=== PATIENT | female | born 1960 | race Hispanic/Latino ===

== ENCOUNTER 2018-05-29 17:50 | Emergency (ER) | payer MEDICAID, MEDICARE, OTHER ==
[2018-05-29] MEDS ORDERED: ACETAMINOPHEN EXTRA STRENGTH 500 MG TABLET ONE (18:06)
[2018-05-29] MEDS ORDERED: SODIUM CHLORIDE 0.9% 1000ML 1,000 ML IV ONE (18:06)
[2018-05-29] MEDS ORDERED: ONDANSETRON HCL 4 MG/2 ML VIAL ONE (18:06)
[2018-05-29] MEDS ORDERED: MORPHINE SULFATE 4 MG/1ML SYG ONE (18:07)
[2018-05-29 18:08] LABS: APPEARANCE,URINE Cloudy (CLEAR); BILIRUBIN,URINE Negative (NEGATIVE); COLOR,URINE Yellow (YELLOW); GLUCOSE, URINE (UA) Negative (NEGATIVE); KETONES,URINE Negative (NEGATIVE); LEUKOCYTE ESTERASE ,URINE Small (NEGATIVE); NITRATE,URINE Negative (NEGATIVE); OCCULT BLOOD,URINE Moderate (NEGATIVE); PH,URINE 5.5 (5.0-8.0); PROTEIN,URINE Trace (NEGATIVE); UROBILINOGEN,URINE 0.2 mg/dL (0.2-1.0)
[2018-05-29 18:19] LABS: BASOPHILS % (AUTO) 0.5 % (0.0-5.0); EOSINOPHILS % (AUTO) 0.6 % (0.0-8.0); HEMATOCRIT 41.7 % (36-48); LYMPHOCYTES % (AUTO) 24.1 % (21.0-51.0); MEAN CORPUSCULAR HEMOGLOBIN 28.3 pg (27.0-33.0); MEAN CORPUSCULAR HGB CONC 33.1 g/dL (32.0-36.0); MEAN CORPUSCULAR VOLUME 85.6 fL (79-99); MONOCYTES % (AUTO) 7.3 % (3.0-13.0); NEUTROPHILS % (AUTO) 67.5 % (40.0-77.0); PLATELET COUNT (AUTO) 252 K/uL (130-400); RED BLOOD CELL COUNT(AUTO) 4.87 MIL/uL (4.00-5.50); RED CELL DISTRIBUTION WIDTH 14.2 % (11.0-15.5); WHITE BLOOD COUNT (AUTO) 10.5 K/uL (4.8-10.8)
[2018-05-29 18:32] LABS: CREATININE 0.5 mg/dL (0.5-1.5); POTASSIUM 3.1 mmol/L (3.5-5.1)
[2018-05-29 18:34] LABS: ALBUMIN 3.7 g/dL (3.5-5.0); BILIRUBIN,TOTAL 0.7 mg/dL (0.2-1.0); TOTAL PROTEIN, SERUM 7.7 g/dL (6.0-8.3)
[2018-05-29 18:36] LABS: FINE GRANULAR CASTS,URINE 0-2 /LPF (None Seen)
[2018-05-29 18:37] LABS: MUCUS,URINE Moderate LPF (None Seen); OTHER CASTS, URINE WBC CASTS 1+ /LPF (None Seen)
[2018-05-29 18:41] LABS: BACTERIA,URINE Few /HPF (None Seen)
[2018-05-29] MEDS ORDERED: SODIUM CHLORIDE 0.9% 50 ML IV ONE (19:46)
[2018-05-29] MEDS ORDERED: CEFTRIAXONE SODIUM 1 GM ONE (19:46)
[2018-05-29] MEDS ORDERED: POTASSIUM BICARB/CIT AC 25 MEQ TABLET.EFF ONE (19:46)
== END 2018-05-29 20:26 | disposition home or self-care (01) ==
LOC: EDH 17:50
DX: N20.1 Calculus of ureter (principal); N39.0 Urinary tract infection, site not specified; Z90.710 Acquired absence of both cervix and uterus; Z90.49 Acquired absence of other specified parts of digestive tract
CPT/HCPCS: 36415; 74176; 80053; 81001; 83690; 85025; 93005; 96374; 96375 ×2; 99284; J0696; J2270; J2405; J7030

== ENCOUNTER → 2018-08-14 | Outpatient (CLI) | payer OTHER | END | disposition home or self-care (01) | LOC: RAH 07-26 09:42 | PROVIDERS: ATTEND Internal Medicine | DX: R92.8 Other abnormal and inconclusive findings on diagnostic imaging of breast (principal) | CPT/HCPCS: 77066 ==

== ENCOUNTER → 2018-09-11 | Outpatient (CLI) | payer OTHER | END | disposition home or self-care (01) | LOC: RAH 07:26 | PROVIDERS: ATTEND Internal Medicine | DX: N60.01 Solitary cyst of right breast (principal); N60.02 Solitary cyst of left breast | CPT/HCPCS: 76641 ==

== ENCOUNTER → 2018-09-12 | Outpatient (CLI) | payer OTHER | END | disposition home or self-care (01) | LOC: RAH 08-21 08:33 | PROVIDERS: ATTEND Internal Medicine | DX: R94.6 Abnormal results of thyroid function studies (principal); R79.89 Other specified abnormal findings of blood chemistry | CPT/HCPCS: 78014; A9516 ==

== ENCOUNTER → 2018-12-05 | Outpatient (CLI) | payer OTHER | END | disposition home or self-care (01) | LOC: RAH 10:18 | PROVIDERS: ATTEND Internal Medicine Endocrinology, Diabetes & Metabolism | DX: E05.00 Thyrotoxicosis with diffuse goiter without thyrotoxic crisis or storm (principal); R68.89 Other general symptoms and signs | CPT/HCPCS: 76536 ==

== ENCOUNTER 2020-05-12 21:18 | Emergency (ER) | payer OTHER ==
[2020-05-12] MEDS ORDERED: ACETAMINOPHEN 325 MG TAB ONE (21:47)
== END 2020-05-12 22:59 | disposition home or self-care (01) ==
LOC: EDH 21:18
DX: M25.512 Pain in left shoulder (principal); M25.552 Pain in left hip; I10 Essential (primary) hypertension; E78.00 Pure hypercholesterolemia, unspecified; Z90.710 Acquired absence of both cervix and uterus; Z90.49 Acquired absence of other specified parts of digestive tract; W18.39XA Other fall on same level, initial encounter; Y93.89 Activity, other specified; Y92.89 Other specified places as the place of occurrence of the external cause; Y99.8 Other external cause status
CPT/HCPCS: 71045; 73060; 73552

== ENCOUNTER 2020-05-17 12:14 | Emergency (ER) | payer OTHER ==
[2020-05-17 12:42] LABS: APPEARANCE,URINE Cloudy (CLEAR); BILIRUBIN,URINE Negative (NEGATIVE); COLOR,URINE Yellow (YELLOW); GLUCOSE, URINE (UA) Negative (NEGATIVE); KETONES,URINE Trace mg/dL (NEGATIVE); LEUKOCYTE ESTERASE ,URINE Trace (NEGATIVE); NITRATE,URINE Negative (NEGATIVE); OCCULT BLOOD,URINE Large (NEGATIVE); PH,URINE 5.5 (5.0-8.0); PROTEIN,URINE Trace mg/dL (NEGATIVE)
[2020-05-17] MEDS ORDERED: 0.9%NACL 1000ML 1,000 ML IV ONE (12:42)
[2020-05-17] MEDS ORDERED: 0.9%NACL 100ML 100 ML IV ONE (12:44)
[2020-05-17] MEDS ORDERED: KETOROLAC 30MG VIAL (30MG/ML) ONE (12:45)
[2020-05-17 12:51] LABS: BASOPHILS % (AUTO) 0.4 % (0.0-5.0); EOSINOPHILS % (AUTO) 0.6 % (0.0-8.0); HEMATOCRIT 40.8 % (36-48); MEAN CORPUSCULAR HEMOGLOBIN 30.5 pg (27.0-33.0); MEAN CORPUSCULAR HGB CONC 33.1 g/dL (32.0-36.0); MEAN CORPUSCULAR VOLUME 92.3 fL (79-99); MONOCYTES % (AUTO) 6.8 % (3.0-13.0); NEUTROPHILS % (AUTO) 78.9 % (40.0-77.0); PLATELET COUNT (AUTO) 274 K/uL (130-400); RED BLOOD CELL COUNT(AUTO) 4.42 MIL/uL (4.00-5.50); WHITE BLOOD COUNT (AUTO) 11.8 K/uL (4.8-10.8)
[2020-05-17 12:54] LABS: BACTERIA,URINE Few /HPF (None Seen); MUCUS,URINE Moderate LPF (None Seen); RBC,URINE 26-50 /HPF (0-1)
[2020-05-17 13:03] LABS: CREATININE 0.9 mg/dL (0.5-1.5); POTASSIUM 3.8 mmol/L (3.5-5.1)
[2020-05-17 13:08] LABS: ALBUMIN 3.6 g/dL (3.5-5.0); BILIRUBIN,TOTAL 0.6 mg/dL (0.2-1.0); TOTAL PROTEIN, SERUM 7.1 g/dL (6.0-8.3)
[2020-05-17] MEDS ORDERED: TAMSULOSIN HCL 0.4 MG CAP.ER.24H ONE (14:20)
== END 2020-05-17 16:02 | disposition home or self-care (01) ==
LOC: EDH 12:14
DX: N20.0 Calculus of kidney (principal); E78.00 Pure hypercholesterolemia, unspecified; I10 Essential (primary) hypertension; Z90.49 Acquired absence of other specified parts of digestive tract; Z90.710 Acquired absence of both cervix and uterus
CPT/HCPCS: 36415; 74176; 80053; 81001; 85025; 96365; 96375; 99284; J1885; J7030

== ENCOUNTER → 2020-06-01 | Outpatient (CLI) | payer OTHER | END | disposition home or self-care (01) | LOC: RAH 09:02 | PROVIDERS: ATTEND Internal Medicine | DX: N60.01 Solitary cyst of right breast (principal); N60.02 Solitary cyst of left breast; N60.11 Diffuse cystic mastopathy of right breast | CPT/HCPCS: 77066 ==

== ENCOUNTER 2021-04-24 10:33 | Emergency (ER) | payer OTHER ==
[~2021-04-24] VITALS: Ht 147.3 cm; Wt 83.9 kg
[2021-04-24] MEDS ORDERED: KETOROLAC 30MG VIAL (30MG/ML) IV ONE (11:00)
[2021-04-24] MEDS ORDERED: KETOROLAC 30MG VIAL (30MG/ML) ONE (11:06)
[2021-04-24 11:40] VITALS: BP 156/92
[2021-04-24] MEDS ORDERED: ACET1TAB25 PO (12:09)
[2021-04-24] MEDS ORDERED: WALK1EAC55 MC (12:10)
== END 2021-04-24 12:41 | disposition home or self-care (01) ==
LOC: EDH 10:33
DX: S70.01XA Contusion of right hip, initial encounter (principal); S30.0XXA Contusion of lower back and pelvis, initial encounter; E03.9 Hypothyroidism, unspecified; E78.00 Pure hypercholesterolemia, unspecified; I10 Essential (primary) hypertension; K21.9 Gastro-esophageal reflux disease without esophagitis; Z79.1 Long term (current) use of non-steroidal anti-inflammatories (NSAID); Z90.49 Acquired absence of other specified parts of digestive tract; W18.39XA Other fall on same level, initial encounter; Y93.89 Activity, other specified; Y92.89 Other specified places as the place of occurrence of the external cause; Y99.8 Other external cause status
CPT/HCPCS: 73502; 73552; 96374; 99284; J1885

== ENCOUNTER 2021-08-02 14:36 | Observation (INO) | payer OTHER ==
[~2021-08-02] VITALS: Ht 147.3 cm; Wt 83.0 kg
[~2021-08-02 14:36] MED LIST: ACET-2079 PO; WALK1EAC55 MC
[2021-08-02 15:06] LABS: APPEARANCE,URINE Clear (CLEAR); BILIRUBIN,URINE Negative (NEGATIVE); COLOR,URINE Yellow (YELLOW); GLUCOSE, URINE (UA) Negative (NEGATIVE); KETONES,URINE Negative (NEGATIVE); LEUKOCYTE ESTERASE ,URINE Negative (NEGATIVE); NITRATE,URINE Negative (NEGATIVE); OCCULT BLOOD,URINE Negative (NEGATIVE); PROTEIN,URINE Negative (NEGATIVE); UROBILINOGEN,URINE 0.2 mg/dL (0.2-1.0)
[2021-08-02 15:07] LABS: BASOPHILS % (AUTO) 0.6 % (0.0-5.0); EOSINOPHILS % (AUTO) 1.1 % (0.0-8.0); HEMATOCRIT 45.9 % (36-48); LYMPHOCYTES % (AUTO) 24.3 % (21.0-51.0); MEAN CORPUSCULAR HEMOGLOBIN 29.8 pg (27.0-33.0); MEAN CORPUSCULAR VOLUME 93.1 fL (79-99); MONOCYTES % (AUTO) 6.8 % (3.0-13.0); NEUTROPHILS % (AUTO) 66.7 % (40.0-77.0); PLATELET COUNT (AUTO) 301 K/uL (130-400); RED BLOOD CELL COUNT(AUTO) 4.93 MIL/uL (4.00-5.50); RED CELL DISTRIBUTION WIDTH 13.4 % (11.0-15.5); WHITE BLOOD COUNT (AUTO) 10.5 K/uL (4.8-10.8)
[2021-08-02 15:28] LABS: CREATININE 0.6 mg/dL (0.5-1.5); POTASSIUM 3.9 mmol/L (3.5-5.1)
[2021-08-02 15:33] LABS: ALBUMIN 3.8 g/dL (3.5-5.0); BILIRUBIN,TOTAL 0.4 mg/dL (0.2-1.0); TOTAL PROTEIN, SERUM 7.3 g/dL (6.0-8.3)
[2021-08-02] MEDS ORDERED: ASPIRIN 325MG TAB PO ONE (17:00)
[2021-08-02] MEDS ORDERED: NITROGLYCERIN 1GM OINT 1 INCH/1GM TD ONE (17:00)
[2021-08-02] MEDS ORDERED: MAG/ALUM/SIMETH 30 ML UDCUP PO PRN (19:00)
[2021-08-02] MEDS ORDERED: ONDANSETRON 4MG INJ IV PRN (19:00)
[2021-08-02] MEDS ORDERED: NITROGLYCERIN 0.4 MG SL TAB SL PRN (19:00)
[2021-08-02] MEDS ORDERED: LACTULOSE 20 GM/30 ML UDCUP PO PRN (19:00)
[2021-08-02] MEDS ORDERED: ACETAMINOPHEN 325 MG TAB PO PRN ×2 (19:00)
[2021-08-02] MEDS ORDERED: GUAIFENESIN-DM 200/20 MG 10 ML PO PRN (19:00)
[2021-08-02] MEDS ORDERED: ZOLPIDEM TARTRATE 5 MG TAB PO PRN (19:00)
[2021-08-02] MEDS ORDERED: HYDRALAZINE HCL 10 MG TABLET PO PRN (19:30)
[2021-08-02] MEDS ORDERED: POTASSIUM CHLORIDE 10% ELIXIR 20 MEQ/15 ML UDCUP PO PRN (19:30)
[2021-08-02] MEDS ORDERED: GLUCAGON 1MG KIT 1 MG ML IM PRN (19:30)
[2021-08-02] MEDS ORDERED: MAGNESIUM 2GM PREMIX 50ML 50 ML IV PRN (19:30)
[2021-08-02] MEDS ORDERED: KCL 20 MEQ ERTAB PO PRN (19:30)
[2021-08-02] MEDS ORDERED: DEXTROSE 50%-WATER 50 ML DISP.SYRIN IV PRN (19:30)
[2021-08-02] MEDS ORDERED: POTASSIUM CHLORIDE 20MEQ/100ML 100 ML IV PRN (19:30)
[2021-08-02] MEDS: FAMOTIDINE 20MG TAB PO SCH (20:58)
[2021-08-02] MEDS: METOPROLOL SUCCINATE 50 MG TAB.SR.24H PO SCH (20:58)
[2021-08-02] MEDS: ATORVASTATIN 40 MG TABLET PO SCH (20:58)
[2021-08-02 22:55] VITALS: BP 154/78
[2021-08-03] MEDS ORDERED: METO-408 PO (00:05)
[2021-08-03] MEDS ORDERED: ERGOCALCIFEROL PO (00:05)
[2021-08-03] MEDS ORDERED: ROSU10TA28 PO (00:05)
[2021-08-03] MEDS ORDERED: LORA10TA7 PO (00:05)
[2021-08-03] MEDS ORDERED: IBUP-2070 PO (00:05)
[2021-08-03] MEDS ORDERED: ACET-66 PO (00:05)
[2021-08-03] MEDS ORDERED: DICL100G31 TP (00:05)
[2021-08-03] MEDS ORDERED: PANT40TA55 PO (00:05)
[2021-08-03] MEDS ORDERED: CALC-1125 PO (00:05)
[2021-08-03] MEDS ORDERED: MULT-660 PO (00:05)
[2021-08-03 03:15] VITALS: BP 129/71
[2021-08-03 05:03] LABS: BASOPHILS % (AUTO) 0.5 % (0.0-5.0); HEMATOCRIT 40.9 % (36-48); LYMPHOCYTES % (AUTO) 32.7 % (21.0-51.0); MEAN CORPUSCULAR HEMOGLOBIN 30.4 pg (27.0-33.0); MEAN CORPUSCULAR HGB CONC 32.3 g/dL (32.0-36.0); MEAN CORPUSCULAR VOLUME 94.2 fL (79-99); MONOCYTES % (AUTO) 7.9 % (3.0-13.0); PLATELET COUNT (AUTO) 264 K/uL (130-400); RED BLOOD CELL COUNT(AUTO) 4.34 MIL/uL (4.00-5.50); RED CELL DISTRIBUTION WIDTH 13.7 % (11.0-15.5); WHITE BLOOD COUNT (AUTO) 10.8 K/uL (4.8-10.8)
[2021-08-03 05:25] LABS: CREATININE 0.6 mg/dL (0.5-1.5); MAGNESIUM 2.2 mg/dL (1.80-2.40); POTASSIUM 3.6 mmol/L (3.5-5.1); THYROID STIMULATING HORMONE 0.9 uIU/mL (0.36-3.74)
[2021-08-03] MEDS ORDERED: IBUPROFEN 600 MG TABLET PO PRN (05:30)
[2021-08-03 07:30] VITALS: BP 125/68
[2021-08-03] MEDS: METOPROLOL SUCCINATE 50 MG TAB.SR.24H PO SCH ×2 (08:27→20:52)
[2021-08-03] MEDS: ENOXAPARIN SODIUM 40 MG/0.4 ML SYRINGE SQ SCH (08:27)
[2021-08-03] MEDS: LORATADINE 10 MG TABLET PO SCH (08:27)
[2021-08-03] MEDS: DICLOFENAC SODIUM APPL TP SCH ×4 (09:00→20:53)
[2021-08-03] MEDS ORDERED: CA 600MG+VIT D 400 UNIT TAB 1 TAB TABLET PO SCH (09:00)
[2021-08-03 11:30] VITALS: BP 131/59
[2021-08-03] MEDS: MULTIVITAMIN TABLET PO SCH (12:31)
[2021-08-03 16:00] VITALS: BP 134/58
[2021-08-03 20:07] VITALS: BP 140/74
[2021-08-03] MEDS: FAMOTIDINE 20MG TAB PO SCH (20:52)
[2021-08-03] MEDS: ATORVASTATIN 40 MG TABLET PO SCH (20:52)
[2021-08-03] MEDS: CA 600MG+VIT D 400 UNIT TAB 1 TAB TABLET PO SCH (20:57)
[2021-08-03 23:20] VITALS: BP 153/77
[2021-08-04 03:42] VITALS: BP 101/57
[2021-08-04 05:27] LABS: BASOPHILS % (AUTO) 0.6 % (0.0-5.0); EOSINOPHILS % (AUTO) 2.5 % (0.0-8.0); HEMATOCRIT 42.8 % (36-48); LYMPHOCYTES % (AUTO) 33.2 % (21.0-51.0); MEAN CORPUSCULAR HEMOGLOBIN 29.8 pg (27.0-33.0); MEAN CORPUSCULAR HGB CONC 32.2 g/dL (32.0-36.0); MEAN CORPUSCULAR VOLUME 92.4 fL (79-99); MONOCYTES % (AUTO) 8.2 % (3.0-13.0); NEUTROPHILS % (AUTO) 55.2 % (40.0-77.0); PLATELET COUNT (AUTO) 266 K/uL (130-400); RED BLOOD CELL COUNT(AUTO) 4.63 MIL/uL (4.00-5.50); RED CELL DISTRIBUTION WIDTH 13.4 % (11.0-15.5); WHITE BLOOD COUNT (AUTO) 10.5 K/uL (4.8-10.8)
[2021-08-04 05:51] LABS: ALBUMIN 3.2 g/dL (3.5-5.0); BILIRUBIN,TOTAL 0.6 mg/dL (0.2-1.0); CREATININE 0.7 mg/dL (0.5-1.5); TOTAL PROTEIN, SERUM 6.7 g/dL (6.0-8.3)
[2021-08-04 08:00] VITALS: BP 126/69
[2021-08-04] MEDS: DICLOFENAC SODIUM APPL TP SCH ×2 (09:00→13:00)
[2021-08-04] MEDS: CA 600MG+VIT D 400 UNIT TAB 1 TAB TABLET PO SCH (09:50)
[2021-08-04] MEDS: LORATADINE 10 MG TABLET PO SCH (09:50)
[2021-08-04] MEDS: METOPROLOL SUCCINATE 50 MG TAB.SR.24H PO SCH (09:51)
[2021-08-04] MEDS: MULTIVITAMIN TABLET PO SCH (09:52)
[2021-08-04] MEDS: ENOXAPARIN SODIUM 40 MG/0.4 ML SYRINGE SQ SCH (09:54)
[2021-08-04 12:00] VITALS: BP 139/76
== END 2021-08-04 16:00 | disposition home or self-care (01) ==
LOC: EDH 14:36 → EDHIP 17:33 → 3AH 22:09
PROVIDERS: ADMIT Internal Medicine Critical Care Medicine; ATTEND Internal Medicine Critical Care Medicine
DX: I16.0 Hypertensive urgency (principal); Z20.822 Contact with and (suspected) exposure to COVID-19; I24.9 Acute ischemic heart disease, unspecified; E78.5 Hyperlipidemia, unspecified; E05.00 Thyrotoxicosis with diffuse goiter without thyrotoxic crisis or storm; I10 Essential (primary) hypertension; K21.9 Gastro-esophageal reflux disease without esophagitis; E66.9 Obesity, unspecified; E78.00 Pure hypercholesterolemia, unspecified; Z90.710 Acquired absence of both cervix and uterus; Z90.49 Acquired absence of other specified parts of digestive tract; Z79.899 Other long term (current) drug therapy; Z98.890 Other specified postprocedural states; Z68.38 Body mass index [BMI] 38.0-38.9, adult
CPT/HCPCS: 36415 ×3; 71045; 80048; 80053 ×2; 81003; 82948 ×6; 83735; 84443; 84484 ×3; 85025 ×3; 87635; 93005 ×3; 93306; 93356; 96372 ×2; 96374; 99285; G0378 ×45; J1650 ×2; J2405

== ENCOUNTER 2022-10-27 16:48 | Observation (INO) | payer OTHER ==
[~2022-10-27] VITALS: Ht 147.3 cm; Wt 84.4 kg
[~2022-10-27 16:48] MED LIST changes: -ACET-2079 PO; +ACET-66 PO; +CALC-1125 PO; +DICL100G31 TP; +ERGOCALCIFEROL PO; +IBUP-2070 PO; +LORA10TA7 PO; +METO-408 PO; +MULT-660 PO; +PANT40TA55 PO; +ROSU10TA28 PO; -WALK1EAC55 MC
[2022-10-27 17:49] LABS: BASOPHILS % (AUTO) 0.3 % (0.0-5.0); EOSINOPHILS % (AUTO) 1.1 % (0.0-8.0); HEMATOCRIT 42.1 % (36-48); LYMPHOCYTES % (AUTO) 18.4 % (21.0-51.0); MEAN CORPUSCULAR HEMOGLOBIN 30.3 pg (27.0-33.0); MEAN CORPUSCULAR HGB CONC 32.8 g/dL (32.0-36.0); MEAN CORPUSCULAR VOLUME 92.3 fL (79-99); MONOCYTES % (AUTO) 8.5 % (3.0-13.0); NEUTROPHILS % (AUTO) 71.4 % (40.0-77.0); PLATELET COUNT (AUTO) 244 K/uL (130-400); RED BLOOD CELL COUNT(AUTO) 4.56 MIL/uL (4.00-5.50); RED CELL DISTRIBUTION WIDTH 13.1 % (11.0-15.5); WHITE BLOOD COUNT (AUTO) 8.8 K/uL (4.8-10.8)
[2022-10-27 18:07] LABS: CREATININE 0.7 mg/dL (0.5-1.5); POTASSIUM 3.6 mmol/L (3.5-5.1)
[2022-10-27 18:18] LABS: ALBUMIN 3.4 g/dL (3.5-5.0); B-TYPE NATRIURETIC PEPTIDE 41 pg/mL (0-100)
[2022-10-27 18:43] LABS: MAGNESIUM 1.9 mg/dL (1.80-2.40); THYROID STIMULATING HORMONE 1.55 uIU/mL (0.36-3.74)
[2022-10-27] MEDS ORDERED: 0.9%NACL 1000ML 1,000 ML IV SCH (20:00)
[2022-10-27] MEDS ORDERED: ONDANSETRON 4MG INJ IVP PRN ×2 (20:00→20:15)
[2022-10-27] MEDS ORDERED: TEMAZEPAM 15 MG CAPSULE PO PRN ×2 (20:00→20:15)
[2022-10-27] MEDS ORDERED: ACETAMINOPHEN 325 MG TAB PO PRN ×2 (20:00→20:15)
[2022-10-27] MEDS ORDERED: LACTULOSE 20 GM/30 ML UDCUP PO PRN ×2 (20:00→20:15)
[2022-10-27] MEDS ORDERED: ACETAMINOPHEN 650 MG SUPPOSITORY RC PRN ×2 (20:00→20:15)
[2022-10-27] MEDS ORDERED: FAMOTIDINE 20MG TAB PO SCH (21:00)
[2022-10-27] MEDS: FAMOTIDINE 20MG TAB PO SCH (21:21)
[2022-10-27] MEDS: 0.9%NACL 1000ML 1,000 ML IV SCH (21:23)
[2022-10-28] VITALS (8 sets, daily range): BP systolic 137–157; BP diastolic 63–94
[2022-10-28] MEDS ORDERED: PRED5DRO25 OP (00:54)
[2022-10-28 03:57] LABS: APPEARANCE,URINE CLEAR (CLEAR); BILIRUBIN,URINE NEGATIVE (NEGATIVE); COLOR,URINE LIGHT-YELLOW (YELLOW); GLUCOSE, URINE (UA) NEGATIVE (NEGATIVE); KETONES,URINE NEGATIVE (NEGATIVE); LEUKOCYTE ESTERASE ,URINE NEGATIVE Leu/uL (NEGATIVE); NITRATE,URINE NEGATIVE (NEGATIVE); OCCULT BLOOD,URINE NEGATIVE (NEGATIVE); PROTEIN,URINE NEGATIVE (NEGATIVE); UROBILINOGEN,URINE 0.2 mg/dL (0.2-1.0)
[2022-10-28] MEDS ORDERED: ENOXAPARIN SODIUM 30 MG/0.3 ML SQ SCH (09:00)
[2022-10-28] MEDS: FAMOTIDINE 20MG TAB PO SCH ×2 (09:56→20:01)
[2022-10-28] MEDS: ASPIRIN 81MG CHEW TAB PO SCH (09:56)
[2022-10-28] MEDS: ENOXAPARIN SODIUM 30 MG/0.3 ML SQ SCH (09:57)
[2022-10-28] MEDS: 0.9%NACL 1000ML 1,000 ML IV SCH ×2 (09:58→16:53)
[2022-10-28] MEDS: DICLOFENAC SODIUM APPL TP SCH ×3 (12:35→20:49)
[2022-10-28] MEDS: METOPROLOL SUCCINATE 25 MG TAB.SR.24H PO SCH (20:01)
[2022-10-28] MEDS ORDERED: ATORVASTATIN 40 MG TABLET PO SCH (21:00)
[2022-10-28] MEDS ORDERED: Rosuvastatin Calcium 10 MG PO SCH (21:00)
[2022-10-29] MEDS: 0.9%NACL 1000ML 1,000 ML IV SCH (02:45)
[2022-10-29 04:20] VITALS: BP 136/68
[2022-10-29 04:55] LABS: BASOPHILS % (AUTO) 0.4 % (0.0-5.0); EOSINOPHILS % (AUTO) 1.7 % (0.0-8.0); HEMATOCRIT 37.2 % (36-48); LYMPHOCYTES % (AUTO) 29.6 % (21.0-51.0); MEAN CORPUSCULAR HEMOGLOBIN 31.2 pg (27.0-33.0); MEAN CORPUSCULAR HGB CONC 34.7 g/dL (32.0-36.0); MEAN CORPUSCULAR VOLUME 90.1 fL (79-99); MONOCYTES % (AUTO) 10.3 % (3.0-13.0); NEUTROPHILS % (AUTO) 57.6 % (40.0-77.0); PLATELET COUNT (AUTO) 211 K/uL (130-400); RED BLOOD CELL COUNT(AUTO) 4.13 MIL/uL (4.00-5.50); RED CELL DISTRIBUTION WIDTH 13.2 % (11.0-15.5); WHITE BLOOD COUNT (AUTO) 9.6 K/uL (4.8-10.8)
[2022-10-29 05:16] LABS: ALBUMIN 2.9 g/dL (3.5-5.0); CREATININE 0.6 mg/dL (0.5-1.5); MAGNESIUM 1.8 mg/dL (1.80-2.40); POTASSIUM 3.4 mmol/L (3.5-5.1); TOTAL PROTEIN, SERUM 6.2 g/dL (6.0-8.3)
[2022-10-29] MEDS ORDERED: KCL 20 MEQ ERTAB PO ONE (07:30)
[2022-10-29 08:00] VITALS: BP 144/76
[2022-10-29] MEDS ORDERED: PANTOPRAZOLE 40 MG TAB DR PO SCH (09:00)
[2022-10-29] MEDS: DICLOFENAC SODIUM APPL TP SCH (09:00)
[2022-10-29] MEDS ORDERED: Prednisolone Acet 1% Eye Drop OP SCH (09:00)
[2022-10-29] MEDS ORDERED: MULTIVITAMIN TABLET PO SCH (09:00)
[2022-10-29] MEDS ORDERED: NON-FORMULARY MEDICATION 1 EACH (Multivitamin (Multivitamins) 1 EACH) PO SCH (09:00)
[2022-10-29 11:02] VITALS: BP 124/74
[2022-10-29] MEDS: ASPIRIN 81MG CHEW TAB PO SCH (11:36)
[2022-10-29] MEDS: FAMOTIDINE 20MG TAB PO SCH (11:36)
[2022-10-29] MEDS: METOPROLOL SUCCINATE 25 MG TAB.SR.24H PO SCH (11:36)
[2022-10-29] MEDS: ENOXAPARIN SODIUM 30 MG/0.3 ML SQ SCH (11:36)
[2022-10-29] MEDS ORDERED: MVIT PO (13:15)
[2022-10-29] MEDS ORDERED: ASPI-1005 PO (13:15)
[2022-10-29] MEDS ORDERED: FAMO20TA8 PO (13:15)
[2022-10-29] MEDS ORDERED: ATOR40TA69 PO (13:15)
== END 2022-10-29 14:55 | disposition home or self-care (01) ==
LOC: EDH 16:48 → EDHIP 19:49 → EDH 20:02 → 4DH 10-28 03:40
PROVIDERS: ADMIT Internal Medicine Critical Care Medicine; ATTEND Internal Medicine Critical Care Medicine
DX: R07.89 Other chest pain (principal); R55 Syncope and collapse; I10 Essential (primary) hypertension; E78.5 Hyperlipidemia, unspecified; E05.00 Thyrotoxicosis with diffuse goiter without thyrotoxic crisis or storm; E78.00 Pure hypercholesterolemia, unspecified; K21.9 Gastro-esophageal reflux disease without esophagitis; E66.01 Morbid (severe) obesity due to excess calories; Z90.89 Acquired absence of other organs; Z79.899 Other long term (current) drug therapy; Z90.710 Acquired absence of both cervix and uterus
CPT/HCPCS: 96360; 96361 ×3; 99285; 84443; 82550; 83735 ×2; 83874; 84484 ×2; 80053 ×2; 83880; 85025 ×2; 85378; 36415 ×2; 71045; 70450; 93880; 93005; 93306 ×2; 96372 ×2; 81003; 93356; G0378 ×42; J1650 ×2

== ENCOUNTER → 2023-03-22 | Outpatient (CLI) | payer OTHER ==
[~2023-03-22] MED LIST changes: -ACET-66 PO; +ASPI-1005 PO; +ATOR40TA69 PO; -CALC-1125 PO; -DICL100G31 TP; +DICL100G60 TP; -ERGOCALCIFEROL PO; +FAMO20TA8 PO; -IBUP-2070 PO; -LORA10TA7 PO; +MVIT PO; +PRED5DRO25 OP
== END | disposition home or self-care (01) ==
LOC: RAH 11:27
PROVIDERS: ATTEND Internal Medicine
DX: Z12.31 Encounter for screening mammogram for malignant neoplasm of breast (principal)
CPT/HCPCS: 77067

== ENCOUNTER 2023-10-28 15:28 | Emergency (ER) | payer OTHER ==
[~2023-10-28] VITALS: Ht 147.3 cm; Wt 82.1 kg
[~2023-10-28 15:28] MED LIST changes: -ROSU10TA28 PO; +ROSU10TA72 PO
[2023-10-28 16:52] LABS: BASOPHILS # (AUTO) 0.04 K/uL (0.00-0.20); BASOPHILS % (AUTO) 0.5 % (0.0-5.0); EOSINOPHILS # (AUTO) 0.18 K/uL (0.00-0.70); EOSINOPHILS % (AUTO) 2.1 % (0.0-8.0); HEMATOCRIT 39.3 % (36-48); IMMATURE GRANULOCYTE ABSOLUTE 0.03 K/uL (0-1); LYMPHOCYTES # (AUTO) 1.8 K/uL (1.0-4.8); LYMPHOCYTES % (AUTO) 20.4 % (21.0-51.0); MEAN CORPUSCULAR HEMOGLOBIN 30.8 pg (27.0-33.0); MEAN CORPUSCULAR HGB CONC 33.6 g/dL (32.0-36.0); MEAN CORPUSCULAR VOLUME 91.8 fL (79-99); MONOCYTES # (AUTO) 0.8 K/uL (0.1-1.0); MONOCYTES % (AUTO) 8.7 % (3.0-13.0); PLATELET COUNT (AUTO) 234 K/uL (130-400); RED BLOOD CELL COUNT(AUTO) 4.28 MIL/uL (4.00-5.50); RED CELL DISTRIBUTION WIDTH 13.1 % (11.0-15.5); WHITE BLOOD COUNT (AUTO) 8.8 K/uL (4.8-10.8)
[2023-10-28 17:07] LABS: CREATININE 0.7 mg/dL (0.5-1.0); POTASSIUM 3.6 mmol/L (3.5-5.1)
[2023-10-28] MEDS: KETOROLAC 15MG/ML VIAL (15MG/ML) IV ONE (17:18)
[2023-10-28 17:19] VITALS: BP 132/56; PULSE 78; RESP 14; O2SAT 98
== END 2023-10-28 18:05 | disposition home or self-care (01) ==
LOC: EDH 15:28
DX: S40.012A Contusion of left shoulder, initial encounter (principal); I10 Essential (primary) hypertension; E78.00 Pure hypercholesterolemia, unspecified; Z79.899 Other long term (current) drug therapy; Z90.49 Acquired absence of other specified parts of digestive tract; Z90.710 Acquired absence of both cervix and uterus; Z98.890 Other specified postprocedural states; W18.39XA Other fall on same level, initial encounter; Y93.89 Activity, other specified; Y92.89 Other specified places as the place of occurrence of the external cause; Y99.8 Other external cause status
CPT/HCPCS: 99285; 96374; 70450; 84484; 80048; 85025; 36415; 73030; 93005; J1885; 96372

== ENCOUNTER → 2024-05-07 | Outpatient (CLI) | payer OTHER ==
--- NOTE | 2024-05-07 18:15 | HMCSR ---
APPROVED REPORT EXAM: Two-dimensional and M-mode echocardiogram with Doppler and color Doppler. INDICATION ICD: R55 Syncope and collapse 2D Dimensions RVDd3.8 cmLVEF(%)66.7 (>50%)LVED Vol(simp.)83.0 mL IVSd1.0 (0.7-1.1cm)FS(%)37 %LVES Vol(simp.)35.0 mL LVDd4.7 (3.8-5.6cm)Ao Root(2D)2.9 (2.0-3.7cm)LVEF(%, simp.)58 % PWd0.9 (0.7-1.1cm)LVOT diam2.0 (1.8-2.4cm)LA ESV INDEX (BP)33.36 mL/m2 LVDs2.9 (2.5-4.0cm)IVC diam1.6 cm Aortic Valve AoV Vmax1.4 m/Emiliana Peak GR7.6 mmHgLVOT Vmax1.0 m/s AoV VTI0.3 mAo Mean GR3.5 mmHgLVOT VTI0.22 m GRECIA (VMAX)2.4 cm2AVA (VTI) 2.4 cm2 Mitral Valve MV E Vmax71.7 cm/sDECEL Rtse459 ms MV A Vmax82.7 cm/sP 1/2 T71 ms E/A ratio0.9MVA (PHT)3.1 cm2 MR Max PG62 mmHg TDI E/E' Gkxwqk27.8E/E' Xstzkwp99.6 Pulmonary Valve PV Vmax1.1 m/sPV VTI0.29 mPV Mean GR3 mmHg PV Peak GR4.4 mmHgPI End Mariaa. Ignacio 1.3 cm/s Tricuspid Valve TR Vmax2.6 m/sRAP (EST) 3 msSaSZER99.5 mmHg TR Peak GR26.5 mmHg Left Ventricle The left ventricle structure and function is normal. There is normal left ventricular wall thickness. LVEF is 55-60%. Indeterminate diastolic dysfunction. Right Ventricle The right ventricle is normal size. The right ventricular systolic function is normal. Atria The left atrium is borderline dilated. Possible small PFO is noted. The right atrium size is normal. Aortic Valve Aortic valve is trileaflet. Aortic valve leaflets are sclerotic but open well. Trace aortic regurgita tion. There is no aortic valvular stenosis. Mitral Valve Mitral valve leaflets are mildly sclerotic but open well. Mitral annular calcification is mild. Cecy l regurgitation is trace. There is no mitral valve stenosis. Tricuspid Valve The tricuspid valve leaflets appear normal. There is trace to mild tricuspid regurgitation. Right man tricular systolic pressure is estimated at 30 mmHg. Pulmonic Valve The pulmonic valve leaflets are thin and pliable; valve motion is normal. There is trace to mild valv ular regurgitation. Great Vessels The aortic root is normal in size. The IVC is normal in size and collapses >50% with inspiration. Pericardium No pericardial effusion. Conclusion LVEF is 55-60%. Possible small PFO is noted. Trace aortic regurgitation. Mitral regurgitation is trace. There is trace to mild valvular regurgitation. There is trace to mild tricuspid regurgitation. Right ventricular systolic pressure is estimated at 30 mmHg.
== END | disposition home or self-care (01) ==
LOC: SHCH 15:24
PROVIDERS: ATTEND Internal Medicine Cardiovascular Disease
DX: I08.8 Other rheumatic multiple valve diseases (principal); R55 Syncope and collapse
CPT/HCPCS: 93306

== ENCOUNTER → 2025-01-16 | Outpatient (CLI) | payer OTHER ==
--- NOTE | 2025-01-16 15:41 | HMCIMG ---
US THYROID/NECK HISTORY: thyrotoxicosis TECHNIQUE: Real-time thyroid ultrasound was performed. FINDINGS: Right thyroid lobe measures 4.9 x 1.9 x 1.5. The gland has a homogeneous echotexture with no nodule. Left thyroid lobe measures 3.8 x 1.5 x 2.1 cm. The left thyroid lobe is homogeneous echotexture.. No discrete thyroid nodule is seen. IMPRESSION: No discrete thyroid nodule is seen. TI-RADS code is 1
== END | disposition home or self-care (01) ==
LOC: RAH 13:47
PROVIDERS: ATTEND Internal Medicine Endocrinology, Diabetes & Metabolism
DX: E05.00 Thyrotoxicosis with diffuse goiter without thyrotoxic crisis or storm (principal)
CPT/HCPCS: 76536

== ENCOUNTER → 2025-03-20 | Outpatient (CLI) | payer OTHER ==
[~2025-03-20] MED LIST changes: -ROSU10TA72 PO; +ROSU10TA98 PO
--- NOTE | 2025-03-20 11:34 | HMCIMG ---
CLINICAL INDICATION: Asymptomatic menopausal state COMPARISON: None TECHNIQUE: Bone densitometry is performed of the lumbar spine and left hip. FINDINGS: Total BMD of lumbar spine is 0.882 g/cm2 with a T-score of -1.5 and Z-score is 0.1. Total BMD of left hip is 0.948 g/cm2 with a T-score of -0.1 and Z-score is 0.9. FRAX SCORE: The 10 year fracture risk for a major osteoporotic fracture and hip fracture major osteoporotic fracture 3.1% and hip fracture 0.3% IMPRESSION: 1. Osteopenia of left hip 2. Osteopenia of lumbar spine 3. Recommend follow-up in 13 months World Health Organization criteria for BMD interpretation classify patients as Normal (T-score at or above -1.0), Osteopenic (T-score between -1.0 and -2.5), or Osteoporotic (T-score at or below -2.5). FRAX SCORE: A. All treatment decisions require clinical judgment and consideration of individual patient factors, including patient preferences, comorbidities, previous drug use, risk factors not captured in the FRAX model (e.g., frailty, falls, vitamin D deficiency, increased bone turnover, interval significant decline in bone density) and possible nyias-[id number]-estimation of fracture risk by FRAX. B. In addition, the NOF Guide recommends that FDA-approved medical therapies be considered in postmenopausal women and men age greater than or equal to 50 years with a: i. Hip or vertebral (clinical or morphometric) fracture. ii. T-score of less than or equal to -2.5 at the spine or hip. iii. Ten-year fracture probability by FRAX of greater than or equal to 3% for hip fracture of greater than or equal to 20% for major osteoporotic fracture.
== END | disposition home or self-care (01) ==
LOC: RAH 10:24
PROVIDERS: ATTEND Internal Medicine
DX: M85.89 Other specified disorders of bone density and structure, multiple sites (principal); Z78.0 Asymptomatic menopausal state
CPT/HCPCS: 77080